=== PATIENT | male | born 2000 | race American Indian/Alaskan Native ===

== ENCOUNTER 2019-02-09 16:39 | Emergency (ER) | payer MEDICAID ==
[2019-02-09 16:57] VITALS: BP 107/67
--- NOTE | 2019-02-09 17:25 | Emergency Department Report ---
ED General Adult HPI - General Chief complaint: Psych Stated complaint: NON VERBAL Time Seen by Provider: 02/09/19 17:06 Source: EMS Mode of arrival: Stretcher Limitations: Other - History of Present Illness Initial comments: 18 yo M brought in by EMS and PD. Pt found in the women's restroom at the nearby [employer]. Pt alert and awake, ambulatory, but seems to be nonverbal. Does not answer questions, only makes incomprehensible sounds. Pt follows verbal commands. -: unknown - Related Data Allergies Allergy/AdvReac Type Severity Reaction Status Date / Time Unable to Assess Allergy Unverified 02/09/19 17:08 ED Review of Systems ROS: Stated complaint: NON VERBAL Other details as noted in HPI Comment: Unobtainable due to pts medical conditions ED Past Medical Hx - Past Medical History Additional medical history: RADHA - Surgical History Additional Surgical History: RADHA - Social History Smoking Status: Unknown if ever smoked ED Physical Exam - General Limitations: Other General appearance: alert, in no apparent distress - Head Head exam: Present: other (healing abrasions to left temporal region) - Eye Eye exam: Present: normal appearance, PERRL, EOMI - ENT ENT exam: Present: mucous membranes moist - Neck Neck exam: Present: normal inspection - Respiratory Respiratory exam: Present: normal lung sounds bilaterally. Absent: respiratory distress - Cardiovascular Cardiovascular Exam: Present: normal rhythm, tachycardia - GI/Abdominal GI/Abdominal exam: Absent: distended - Extremities Exam Extremities exam: Present: normal inspection, full ROM - Neurological Exam Neurological exam: Present: alert, normal gait (ambulates, follows commands, makes incomprehensible noises, moves all extremities), other - Psychiatric Psychiatric exam: Present: normal affect, normal mood, other (appears to be autistic) - Skin Skin exam: Present: warm, dry, intact, normal color ED Course Vital Signs 02/09/19 16:56 Temperature 99.2 F Pulse Rate 114 H Respiratory 24 Rate Blood Pressure 107/67 [107/67] O2 Sat by Pulse 95 Oximetry - Reevaluation(s) Reevaluation #1: 02/09/19 17:22 Caregiver has arrived. States pt's name is Weston and he is autistic. Caregiver states she went to get her nails done about an hr ago. She left the pt with a f riend of hers and he took the pt into the bank. Pt wandered off and into the [employer]. States pt appears unharmed and is at his baseline. ED Medical Decision Making - Medical Decision Making 18 yo autistic male found at [employer] after wandering away from caregivers. Pt is at his baseline, no apparent injuries or abnormalities. Will discharge at this time. Critical care attestation.: If time is entered above; I have spent that time in minutes in the direct care of this critically ill patient, excluding procedure time. ED Disposition Clinical Impression: Person with feared complaint in whom no diagnosis is made, Autism Disposition: DC-01 TO HOME OR SELFCARE Is pt being admited?: No Condition: Stable Instructions: Autism (ED) Referrals: PRIMARY CARE, [Referring] - 3-5 Days Time of Disposition: 17:25
== END 2019-02-09 17:45 | disposition home or self-care (01) ==
LOC: EDBD → ED 16:39
DX: F84.0 Autistic disorder (principal)